=== PATIENT | female | born 1970 | race African-American/Black ===

== ENCOUNTER 2016-08-22 18:04 | Emergency (ER) | payer MEDICAID, OTHER ==
[~2016-08-22] VITALS: Ht 170.2 cm; Wt 95.0 kg
[~2016-08-22 18:04] MED LIST: CIPR-263
[2016-08-22] MEDS ORDERED: PROZAC (18:14)
[2016-08-22] MEDS ORDERED: ONDANSETRON HCL 4MG/2ML VIAL IV STA (20:37)
[2016-08-22] MEDS ORDERED: SODIUM CHLORIDE 0.9% 1,000 ML IV ONE (20:37)
[2016-08-22] MEDS ORDERED: FAMOTIDINE 20MG/2ML VIAL IV STA (20:37)
[2016-08-22] MEDS ORDERED: MAGNESIUM/ALUMINUM HYDROXIDE/SIMETHICONE 30ML UDC PO STA (20:37)
[2016-08-22] MEDS ORDERED: KETOROLAC 30MG/ML VIAL IV STA (20:37)
[2016-08-22 21:03] LABS: EOSINOPHILS % 0.1 % (0.0-5.0); HEMATOCRIT. 36.7 % (36.0-48.0); HEMOGLOBIN. 12.1 g/dL (12.0-16.0); LYMPHOCYTES % 12.1 % (20.0-50.0); MEAN CORPUSCULAR HGB CONC 32.9 g/dL (31.0-37.0); MEAN CORPUSCULAR VOLUME 82.3 fL (81.0-99.0); MEAN PLATELET VOLUME 6.7 fl (7.4-10.4); MONOCYTES % 2.9 % (2.0-8.0); NEUTROPHILS % 83.9 % (40.0-76.0); PLATELET 595 x1000/uL (130-400); RED BLOOD CELL COUNT 4.46 mill/uL (4.2-5.4); RED CELL DISTRIBUTION WIDTH 14.6 % (11.6-14.6); WHITE BLOOD COUNT 18.7 x1000/uL (4.5-11.0)
[2016-08-22 21:06] LABS: INR 1.1; PROTHROMBIN TIME 11.4 sec
[2016-08-22 21:13] LABS: ALANINE AMINOTRANSFERASE 18 IU/L (13-61); ALBUMIN 3.6 g/dL (3.4-5.0); ANION GAP 16; CARBON DIOXIDE 24 mEq/L (21-32); CHLORIDE 108 mEq/L (98-107); INDEX HEMOLYSI 1 (1-3); INDEX ICTERIC 1 (1-4); INDEX LIPEMIC 1 (1-3); LIPASE 89 IU/L (73-393); UREA NITROGEN BLOOD 5 mg/dL (7-21); eGFR > 60 mL/min (>60)
[2016-08-22 22:22] LABS: CLARITY URINE CLOUDY (CLEAR); COLOR URINE YELLOW (YELLOW); GLUCOSE URINE NEGATIVE (NEGATIVE); KETONES URINE 4+ (NEGATIVE); LEUKOCYTE ESTERASE URINE 2+ (NEGATIVE); NITRITE URINE NEGATIVE (NEGATIVE); OCCULT BLOOD URINE 2+ (NEGATIVE); PH URINE 8.5 (4.5-8.0); PROTEIN URINE 1+ (NEGATIVE); SPECIFIC GRAVITY URINE 1.027 (1.005-1.030)
[2016-08-22] MEDS ORDERED: MORPHINE SULFATE 4 MG/ML CPJ (NOT FOR IM USE) IV ONE (22:45)
[2016-08-22 22:46] LABS: BACTERIA URINE 2+; SQUAMOUS EPITHELIAL CELL URINE 2+ /lpf (RARE/1+); TRICHOMONAS URINE FEW
[2016-08-22 22:47] VITALS: BP 154/96
== END 2016-08-23 00:30 | disposition home or self-care (01) ==
LOC: ER 18:05
DX: N39.0 Urinary tract infection, site not specified (principal); F17.210 Nicotine dependence, cigarettes, uncomplicated; F12.10 Cannabis abuse, uncomplicated; F41.9 Anxiety disorder, unspecified; F32.9 Major depressive disorder, single episode, unspecified; I10 Essential (primary) hypertension; Z98.51 Tubal ligation status
CPT/HCPCS: 36415; 74176; 80053; 81001; 81025; 83690; 85025; 85610; 96361; 96374; 96375; 99285; J1885; J2270; J2405; J3490; J7030; Z7610

== ENCOUNTER 2018-03-17 23:42 | Inpatient (IN) | payer MEDICAID ==
[~2018-03-17] VITALS: Ht 165.1 cm; Wt 97.5 kg
[~2018-03-17 23:42] MED LIST changes: -CIPR-263; +PROZAC
[2018-03-18] MEDS ORDERED: ASPIRIN 81MG TABLET PO ONE (02:30)
[2018-03-18 03:19] LABS: BASOPHILS % 0.8 % (0.0-2.0); EOSINOPHILS % 0.4 % (0.0-5.0); HEMATOCRIT. 38.7 % (36.0-48.0); HEMOGLOBIN. 12.5 g/dL (12.0-16.0); LYMPHOCYTES % 20.8 % (20.0-50.0); MEAN CORPUSCULAR HEMOGLOBIN 25.7 pg (28.0-32.0); MEAN CORPUSCULAR VOLUME 79.4 fL (81.0-99.0); MEAN PLATELET VOLUME 6.8 fl (7.4-10.4); MONOCYTES % 6.3 % (2.0-8.0); NEUTROPHILS % 71.7 % (40.0-76.0); PLATELET 631 x1000/uL (130-400); RED BLOOD CELL COUNT 4.87 mill/uL (4.2-5.4); RED CELL DISTRIBUTION WIDTH 16.6 % (11.6-14.6)
[2018-03-18 03:28] LABS: INR 1.1; PROTHROMBIN TIME 10.7 sec (9.1-11.1)
[2018-03-18 03:29] LABS: CHLORIDE 101 mEq/L (98-107)
[2018-03-18] MEDS ORDERED: POTASSIUM CHLORIDE 20MEQ TABLET SR PO ONE (03:30)
[2018-03-18] MEDS ORDERED: LEVOFLOXACIN 750MG PREMIX 150 ML IV ONE (04:15)
[2018-03-18] MEDS ORDERED: SODIUM CHLORIDE 0.9% 1000ML BAG (SEPSIS BOLUS) IV ONE (04:15)
[2018-03-18 08:17] LABS: CLARITY URINE CLOUDY (CLEAR); COLOR URINE ORANGE (YELLOW); KETONES URINE TRACE (NEGATIVE); LEUKOCYTE ESTERASE URINE 1+ (NEGATIVE); NITRITE URINE NEGATIVE (NEGATIVE); OCCULT BLOOD URINE 3+ (NEGATIVE); PH URINE 6.5 (4.5-8.0); PROTEIN URINE 1+ (NEGATIVE); SPECIFIC GRAVITY URINE 1.026 (1.005-1.030)
[2018-03-18 09:31] LABS: CREATINE KINASE 40 IU/L (26-192); CREATINE KINASE MB FRACTION < 1.0 ng/mL (0.5-3.6); HDL CHOLESTEROL 33 mg/dL (40-59); LDL CHOLESTEROL 142 mg/dL (5-100)
[2018-03-18 15:17] VITALS: BP 105/56
[2018-03-18 15:23] VITALS: BP 105/56
[2018-03-18 16:00] VITALS: BP 107/54
[2018-03-18] MEDS ORDERED: HYDR50TA55 PO (16:00)
[2018-03-18] MEDS ORDERED: LEVOFLOXACIN 500MG PREMIX 100 ML IV SCH (16:00)
[2018-03-18] MEDS ORDERED: MIRT45TA59 PO (16:06)
[2018-03-18] MEDS ORDERED: PRAZ2CAP2 PO (16:06)
[2018-03-18] MEDS ORDERED: OMEP20CA10 PO (16:06)
[2018-03-18] MEDS ORDERED: ARIP10TA16 PO (16:06)
[2018-03-18] MEDS ORDERED: ONDANSETRON HCL 4MG/2ML INJ IV PRN (16:30)
[2018-03-18] MEDS ORDERED: HYDROCODONE/ACETAMINOPHEN 5/325MG TABLET PO PRN (16:30)
[2018-03-18] MEDS: ASPIRIN 81MG TABLET PO SCH (16:48)
[2018-03-18] MEDS: PANTOPRAZOLE SODIUM 40 MG/VIAL IV SCH (16:59)
[2018-03-18 20:00] VITALS: BP 101/57
[2018-03-19] VITALS: BP 107/63
[2018-03-19 04:00] VITALS: BP 107/61
[2018-03-19 06:52] LABS: *AMPHETAMINES SCREEN URINE NEGATIVE (NEGATIVE); *BARBITURATES SCREEN URINE NEGATIVE (NEGATIVE); *BENZODIAZEPINES SCREEN URINE NEGATIVE (NEGATIVE); *COCAINE SCREEN URINE NEGATIVE (NEGATIVE); METHADONE URINE SCREEN NEGATIVE (NEGATIVE); PHENCYCLIDINE URINE SCREEN NEGATIVE (NEGATIVE)
[2018-03-19 06:57] LABS: CANNABINOID URINE SCREEN PRESUMTIVE POSITIVE (NEGATIVE); OPIATES URINE SCREEN PRESUMTIVE POSITIVE (NEGATIVE)
[2018-03-19 08:00] VITALS: BP 110/70
[2018-03-19] MEDS: ASPIRIN 81MG TABLET PO SCH (08:56)
[2018-03-19] MEDS: PANTOPRAZOLE SODIUM 40 MG/VIAL IV SCH (09:00)
[2018-03-19 12:00] VITALS: BP 118/74
[2018-03-19 14:07] LABS: BASOPHILS % 0.8 % (0.0-2.0); EOSINOPHILS % 0.8 % (0.0-5.0); HEMATOCRIT. 33.8 % (36.0-48.0); HEMOGLOBIN. 10.8 g/dL (12.0-16.0); LYMPHOCYTES % 30.3 % (20.0-50.0); MEAN CORPUSCULAR HEMOGLOBIN 25.4 pg (28.0-32.0); MEAN CORPUSCULAR VOLUME 79.8 fL (81.0-99.0); MONOCYTES % 6.1 % (2.0-8.0); PLATELET 540 x1000/uL (130-400); RED BLOOD CELL COUNT 4.23 mill/uL (4.2-5.4); RED CELL DISTRIBUTION WIDTH 16.6 % (11.6-14.6)
[2018-03-19 15:05] LABS: CHLORIDE 107 mEq/L (98-107)
[2018-03-19 16:00] VITALS: BP 118/76
[2018-03-19] MEDS ORDERED: LEVOFLOXACIN 500MG PREMIX 100 ML IV SCH (16:00)
== END 2018-03-19 18:30 | disposition home or self-care (01) | DRG 720 ==
LOC: ER 23:42 → 7WST 03-18 04:17 → EDBEDREQTM 03-18 04:21 → EDBEDREQ 03-18 04:21 → ENRESERV 03-18 13:34
PROVIDERS: ADMIT Internal Medicine; ATTEND Internal Medicine
DX: A41.9 Sepsis, unspecified organism (principal); E66.9 Obesity, unspecified; N39.0 Urinary tract infection, site not specified; E87.6 Hypokalemia; M94.0 Chondrocostal junction syndrome [Tietze]; K29.70 Gastritis, unspecified, without bleeding; Z98.51 Tubal ligation status; Z68.35 Body mass index [BMI] 35.0-35.9, adult
CPT/HCPCS: 36415; 71045; 80048; 80061; 80305; 82550; 82553; 83605; 83880; 84443; 84484; 93005; 93306; 93970; 99285; C9113; J1956; J7030; J7050

== ENCOUNTER 2018-08-04 08:02 | Day surgery (SDC) | payer MEDICAID ==
[~2018-08-04] VITALS: Ht 162.6 cm; Wt 92.1 kg
[~2018-08-04 08:02] MED LIST changes: +ARIP10TA16 PO; +ARIP30TA2 PO; +FLUO10CA25 PO; +HYDR-4009 PO; +HYDR50TA55 PO; +MELO-106 PO; +MIRT45TA59 PO; +OMEP20CA10 PO; +PRAZ2CAP2 PO
[2018-08-04 08:56] LABS: UCG SCREEN NEGATIVE
[2018-08-04] MEDS ORDERED: LACTATED RINGERS 1,000 ML IV SCH (09:00)
[2018-08-04] MEDS ORDERED: MIDAZOLAM HCL 2 MG/2 ML VIAL ONE (09:50)
[2018-08-04] MEDS ORDERED: PROPOFOL 200MG/20ML VIAL IV ONE (09:50)
[2018-08-04] MEDS ORDERED: SIMETHICONE 40 MG/0.6 ML 30ML ONE (10:03)
[2018-08-04] MEDS: ONDANSETRON HCL 4MG/2ML INJ IM SCH ×2 (12:41→12:42)
[2018-08-04] MEDS ORDERED: HYDRALAZINE 20MG/ML VIAL IV NR (12:45)
== END 2018-08-04 14:00 | disposition home or self-care (01) ==
LOC: OR 08:02
PROVIDERS: ATTEND Internal Medicine Gastroenterology
DX: K29.50 Unspecified chronic gastritis without bleeding (principal); K21.9 Gastro-esophageal reflux disease without esophagitis; D50.9 Iron deficiency anemia, unspecified; E53.8 Deficiency of other specified B group vitamins; F31.9 Bipolar disorder, unspecified; Z87.891 Personal history of nicotine dependence; Z98.51 Tubal ligation status
CPT/HCPCS: 43239; 81025; 88305; 88312; 88313; 93005; J0360; J2250; J2405; J2704

== ENCOUNTER 2018-10-29 14:55 | Inpatient (IN) | payer MEDICAID ==
[~2018-10-29] VITALS: Ht 162.6 cm; Wt 96.2 kg
[~2018-10-29 14:55] MED LIST changes: -ARIP10TA16 PO; -OMEP20CA10 PO; +OMEP20CA5 PO; -PROZAC
[2018-10-29] MEDS ORDERED: KETOROLAC 30MG/ML VIAL IV STA (15:42)
[2018-10-29] MEDS ORDERED: SODIUM CHLORIDE 0.9% 1,000 ML IV ONE (15:42)
[2018-10-29] MEDS ORDERED: ONDANSETRON HCL 4MG/2ML INJ IV STA (15:42)
[2018-10-29] MEDS ORDERED: MORPHINE SULFATE 4 MG/ML CPJ (NOT FOR IM USE) IV STA (15:42)
[2018-10-29] MEDS ORDERED: FAMOTIDINE 20MG/2ML VIAL IV ONE (15:45)
[2018-10-29 16:35] LABS: BASOPHILS % 0.8 % (0.0-2.0); EOSINOPHILS % 1.2 % (0.0-5.0); HEMOGLOBIN. 11.9 g/dL (12.0-16.0); LYMPHOCYTES % 17.5 % (20.0-50.0); MEAN CORPUSCULAR HEMOGLOBIN 24.8 pg (28.0-32.0); MEAN PLATELET VOLUME 6.9 fl (7.4-10.4); MONOCYTES % 4.8 % (2.0-8.0); NEUTROPHILS % 75.7 % (40.0-76.0); PLATELET 509 x1000/uL (130-400); RED BLOOD CELL COUNT 4.81 mill/uL (4.2-5.4); RED CELL DISTRIBUTION WIDTH 18.2 % (11.6-14.6)
[2018-10-29 16:45] LABS: PARTIAL THROMBOPLASTIN TIME 23.5 sec (23.4-31.0); PROTHROMBIN TIME 10.3 sec (9.6-11.0)
[2018-10-29 16:48] LABS: CHLORIDE 102 mEq/L (98-107)
[2018-10-29 16:52] LABS: ETHANOL BLOOD < 10 mg/dL
[2018-10-29 16:58] LABS: CLARITY URINE CLOUDY (CLEAR); COLOR URINE DARK YELLOW (YELLOW); KETONES URINE TRACE (NEGATIVE); LEUKOCYTE ESTERASE URINE TRACE (NEGATIVE); NITRITE URINE NEGATIVE (NEGATIVE); OCCULT BLOOD URINE 3+ (NEGATIVE); PH URINE 6.5 (4.5-8.0); PROTEIN URINE 1+ (NEGATIVE); SPECIFIC GRAVITY URINE 1.035 (1.005-1.030)
[2018-10-29 17:01] LABS: HCG SCREEN NEGATIVE
[2018-10-29 17:09] LABS: *AMPHETAMINES SCREEN URINE NEGATIVE (NEGATIVE); *BARBITURATES SCREEN URINE NEGATIVE (NEGATIVE); *BENZODIAZEPINES SCREEN URINE NEGATIVE (NEGATIVE); *COCAINE SCREEN URINE NEGATIVE (NEGATIVE); METHADONE URINE SCREEN NEGATIVE (NEGATIVE); OPIATES URINE SCREEN NEGATIVE (NEGATIVE)
[2018-10-29 17:10] LABS: PHENCYCLIDINE URINE SCREEN NEGATIVE (NEGATIVE)
[2018-10-29 17:11] LABS: CANNABINOID URINE SCREEN PRESUMTIVE POSITIVE (NEGATIVE)
[2018-10-29] MEDS ORDERED: CEFTRIAXONE 1 G PREMIX 50 ML IV ONE (19:30)
[2018-10-29] MEDS ORDERED: MORPHINE SULFATE 4 MG/ML CPJ (NOT FOR IM USE) IV ONE (20:15)
[2018-10-29] MEDS ORDERED: ONDANSETRON HCL 4MG/2ML INJ IV ONE (20:15)
[2018-10-29] MEDS ORDERED: ACETAMINOPHEN 325MG TABLET PO PRN (20:45)
[2018-10-29] MEDS ORDERED: ONDANSETRON HCL 4MG/2ML INJ IV PRN (20:45)
[2018-10-29] MEDS ORDERED: POTASSIUM CHLORIDE INJ 40 MEQ in DEXT 5% WATER 250 ML IV NR (21:00)
[2018-10-29 22:30] VITALS: BP 122/71
[2018-10-30] VITALS (7 sets, daily range): BP systolic 101–143; BP diastolic 54–82
[2018-10-30] MEDS ORDERED: LEVOFLOXACIN 500MG PREMIX 100 ML IV SCH (01:00)
[2018-10-30 06:13] LABS: BASOPHILS % 0.8 % (0.0-2.0); EOSINOPHILS % 1.8 % (0.0-5.0); HEMATOCRIT. 33.3 % (36.0-48.0); HEMOGLOBIN. 10.7 g/dL (12.0-16.0); LYMPHOCYTES % 26.2 % (20.0-50.0); MEAN CORPUSCULAR HEMOGLOBIN 24.9 pg (28.0-32.0); MEAN CORPUSCULAR VOLUME 77.5 fL (81.0-99.0); MEAN PLATELET VOLUME 6.7 fl (7.4-10.4); MONOCYTES % 6.7 % (2.0-8.0); NEUTROPHILS % 64.5 % (40.0-76.0); PLATELET 484 x1000/uL (130-400); RED BLOOD CELL COUNT 4.29 mill/uL (4.2-5.4); RED CELL DISTRIBUTION WIDTH 18.7 % (11.6-14.6)
[2018-10-30 06:28] LABS: CHLORIDE 107 mEq/L (98-107)
[2018-10-30] MEDS ORDERED: OMEPRAZOLE 20MG CAPSULE EXTENDED RELEASE PO SCH (07:20)
[2018-10-30] MEDS: MORPHINE SULFATE 2 MG/ML CPJ (NOT FOR IM USE) IV PRN ×2 (14:36→20:14)
[2018-10-30 19:07] LABS: TOTAL IRON BINDING CAPACITY 363 ug/dL (250-450)
[2018-10-30] MEDS ORDERED: MIRTAZAPINE 15MG TABLET PO SCH (21:00)
[2018-10-31] MEDS: LEVOFLOXACIN 500MG PREMIX 100 ML IV SCH ×2 (00:45→01:24)
[2018-10-31 04:14] VITALS: BP 137/79
[2018-10-31] MEDS: MORPHINE SULFATE 2 MG/ML CPJ (NOT FOR IM USE) IV PRN (06:28)
[2018-10-31 06:31] LABS: BASOPHILS % 0.7 % (0.0-2.0); HEMATOCRIT. 33.3 % (36.0-48.0); HEMOGLOBIN. 10.9 g/dL (12.0-16.0); LYMPHOCYTES % 30.6 % (20.0-50.0); MEAN CORPUSCULAR HEMOGLOBIN 25.1 pg (28.0-32.0); MEAN CORPUSCULAR VOLUME 76.7 fL (81.0-99.0); MEAN PLATELET VOLUME 6.8 fl (7.4-10.4); MONOCYTES % 6.9 % (2.0-8.0); NEUTROPHILS % 58.8 % (40.0-76.0); PLATELET 436 x1000/uL (130-400); RED BLOOD CELL COUNT 4.34 mill/uL (4.2-5.4); RED CELL DISTRIBUTION WIDTH 18.4 % (11.6-14.6)
[2018-10-31 06:40] LABS: CHLORIDE 108 mEq/L (98-107)
[2018-10-31 08:18] VITALS: BP 105/55
[2018-10-31] MEDS ORDERED: POTASSIUM CHLORIDE 20MEQ TABLET SR PO SCH (09:00)
[2018-10-31] MEDS ORDERED: HYDROXYZINE 25MG TABLET PO SCH (09:00)
[2018-10-31] MEDS ORDERED: FLUOXETINE HCL 10 MG CAPSULE PO SCH (09:00)
[2018-10-31] MEDS ORDERED: OMEPRAZOLE 20MG CAPSULE EXTENDED RELEASE PO SCH (09:00)
[2018-10-31] MEDS ORDERED: ARIPIPRAZOLE 10MG TABLET PO SCH (09:00)
[2018-10-31 11:58] VITALS: BP 104/65
[2018-10-31 13:21] VITALS: BP 105/55
== END 2018-10-31 13:50 | disposition home or self-care (01) | DRG 720 ==
LOC: ER 14:55 → 6EST 19:50 → EDBEDREQSVC 19:56 → EDBEDREQ 19:56 → EDBEDREQTM 19:56 → ENRESERV 22:51
PROVIDERS: ADMIT Internal Medicine; ATTEND Internal Medicine
DX: A41.9 Sepsis, unspecified organism (principal); D25.9 Leiomyoma of uterus, unspecified; D50.9 Iron deficiency anemia, unspecified; E87.6 Hypokalemia; F12.90 Cannabis use, unspecified, uncomplicated; K52.9 Noninfective gastroenteritis and colitis, unspecified; N39.0 Urinary tract infection, site not specified; F17.200 Nicotine dependence, unspecified, uncomplicated; K29.70 Gastritis, unspecified, without bleeding; Z87.11 Personal history of peptic ulcer disease; Z98.51 Tubal ligation status; Z91.018 Allergy to other foods; Z79.899 Other long term (current) drug therapy; Z71.3 Dietary counseling and surveillance
CPT/HCPCS: 36415; 71045; 74176; 80048; 80305; 80320; 82728; 83540; 83550; 83605; 83880; 84484; 84703; 93005; 93970; 99285; J0696; J1885; J1956; J2270; J2405; J3480; J3490; J7030; J7040; J7050; J7060; G0480